=== PATIENT | female | born 1990 ===

== ENCOUNTER 2024-01-28 14:13 | Emergency (ER) | payer SELFPAY ==
--- NOTE | ~2024-01-28 | CT_ITS ---
EXAMINATION: CT ABDOMEN AND PELVIS WITH CONTRAST CLINICAL INFORMATION: Left lower quadrant pain. Bloody stools. COMPARISON: None available. TECHNIQUE: Multidetector volumetric images were obtained from the superior aspect of the liver through the pubic symphysis following administration 85 mL of Omnipaque 350 intravenous contrast. Sagittal and coronal reformatted images were obtained on the technologist's workstation. Oral contrast: No This CT examination was performed using dose optimization techniques as appropriate, variously including the following: *Automated exposure control *Adjustment of mA and/or kV according to patient size (this includes techniques or standardized protocols for targeted exams where dose is matched to indication/reason for exam; i.e. extremities or head) *Use of iterative reconstruction technique DLP: 728 mGy-cm FINDINGS: LUNG BASES: The visualized lung bases are unremarkable. LIVER, GALLBLADDER, AND BILIARY TREE: The liver is normal in size, shape, and attenuation. No focal hepatic lesion or biliary ductal dilatation is present. There is nondistended. No radiopaque stone or inflammatory change. PANCREAS: Unremarkable. SPLEEN: Unremarkable. ADRENAL GLANDS: Unremarkable. KIDNEYS AND URETERS: The kidneys are normal in size, shape, and attenuation. No hydronephrosis, hydroureter, or calculi seen. No perinephric stranding. BLADDER: Unremarkable. GASTROINTESTINAL TRACT: No small or large bowel obstruction. No bowel wall thickening or inflammatory change. Unremarkable appendix. PERITONEAL CAVITY: Trace pelvic free fluid. No intra-abdominal free air. No soft tissue mass or organized fluid collection. ABDOMINAL WALL: No significant hernia is appreciated. LYMPH NODES: No significant lymphadenopathy. VASCULAR: Unremarkable. PELVIC VISCERA: Bilateral ovarian follicles. No pelvic mass or organized fluid collection. OSSEOUS STRUCTURES: Chronic bilateral spondylolysis at L5-S1 with minimal grade 1 anterolisthesis. No acute fracture or subluxation. CT/CT abdomen pelvis w IV con IMPRESSION: 1. No small or large bowel obstruction. No bowel wall thickening or inflammatory change. Unremarkable appendix. 2. Trace pelvic free fluid. Bilateral ovarian follicles. No pelvic mass or organized fluid collection. 3. Chronic bilateral spondylolysis at L5-S1 with minimal grade 1 anterolisthesis. Fleischner guidelines were followed.
--- NOTE | 2024-01-28 14:43 | ED.ABDPAIN ---
HPI - Abdominal Pain General Chief Complaint: Recheck/Abnormal Lab/Rx Stated Complaint: Anal Bleed Time Seen by Provider: 01/28/24 20:50 Source: patient Mode of arrival: ambulatory Limitations: no limitations History of Present Illness ED Provider: GUILLE HPI narrative: 33 yo female with no PMH notes since January 13 when she was living in [place] she has had constant LLQ pain and intermittent bloody stools. No other travel, no abx use, no exposures. She has never this before, does not take thinners and does not have hx of colonoscopy. Mom is with her denies fam hx of UC or Crohns. Patient denies n/v or fevers. MD elicited complaint: abdominal pain Pertinent past history: none Onset (ago): week(s) (2) Pain Consistency: constant Location: LLQ Severity: moderate Quality: aching Radiation: none Migration to: no migration Exacerbating factors: eating Relieving factors: nothing Associated symptoms: hematochezia Related Data Previous Rx's ?Medication ?Instructions ?Recorded docusate sodium 100 mg capsule 100 mg PO BID PRN constipation #30 01/28/24 (Colace) caps Allergies Allergy/AdvReac Type Severity Reaction Status Date / Time Iodinated Contrast Media Allergy Hives Verified 01/28/24 22:19 Review of Systems Review of Systems Constitutional : No Weight loss, No Fever, No Chills ENT/Mouth : No sore throat, No Rhinorrhea Eyes: No Swelling, No Redness Cardiovascular : No Chest Pain, No SOB, No edema Respiratory : No Cough, No Sputum, No Wheezing Gastrointestinal : no Nausea, no Vomiting, no Diarrhea, positive abdominal Pain, pos Hematochezia, No Melena Genitourinary : No Dysuria, No Urinary Frequency, No Hematuria, No Urgency Musculoskeletal : No joint pain, No Myalgias, No Joint Swelling Skin : No Skin Lesions, No rash Neuro : No Weakness, No Numbness, No Dizziness, No Headache Psych : No Anxiety/Panic, No Depression All other systems reviewed and are negative. [facility] Past Medical History Attestation statement: The following information was validated with the patient. Source: old records reviewed Medical History No known health problems Social History Social History Smoked in Last 30 Days: No Use of substances other than those prescribed or required for medical reasons: No Advance Directives: No Advance Directives Information Provided: No Do you have a plan to hurt others: No Plan Physical Exam ED Vital Signs: Vital Signs - 24 hr 01/28/24 14:44 01/28/24 20:51 01/28/24 22:13 Temperature 98 F 98.9 F Pulse Rate 66 67 88 Respiratory Rate 18 16 18 Blood Pressure 112/56 L 115/67 Pulse Oximetry 99 99 100 Oxygen Delivery Method Room Air Room Air Room Air BMI result Body Mass Index 34.7 Appearance: Alert. Oriented X3. No acute distress. Eyes: Pupils equal, round and reactive to light. ENT: Pharynx normal. Neck: Normal inspection. Neck supple. CVS: Normal heart rate and rhythm. Pulses normal. Respiratory: No respiratory distress. Breath sounds normal. Abdomen: Soft and mild LLQ ttp no rebound or guarding Skin: Skin warm and dry. Normal skin color. Normal skin turgor. Extremities: No lower extremity edema. Neuro: Oriented X 3. No motor deficit. No sensory deficit. Course Course Course Narrative: This is an RME performed by Rafi Brayd, GRADING SUPERVISOR: Additional HPI, ROS, PE not included below will be deferred to primary provider. Patient is a 33-year-old female who presents emergency department for evaluation of left-sided abdominal pain, and bright red blood per rectum reportedly multiple times a day every time she has a bowel movement since 01/14/2024. Denies any history of similar pain including like this in the past. Denies blood from the rectum when she is not having a bowel movement. Plan: labs, occult stool Reevaluation(s) Reevaluation #1: itching and hives noted to arm after CT scan responding well to solumedrol and benadryl Medical Decision Making Medical Decision Making MDM Narrative: 33 yo female with no sig PMH no fam hx of IBD, no travel or abx use - at this time has LLQ pain and blood in stool will obtain basic labs, CT scan for colitis/diverticulitis Differential Diagnosis Differential Diagnoses: The differential diagnosis associated with the presentation includes colitis/diverticulitis Admission/Observation Consideration of admission/observation: Escalation of care including admission/observation considered labs stable H/H stable, guiac negative stools CT scan no acute findings stable for DC will refer to GI Lab Data MDM Lab Attestation statement: I reviewed the patient's lab results. 01/28/24 14:53 01/28/24 14:53 Labs: Lab Results 01/28/24 01/28/24 01/28/24 Range/Units 14:53 21:04 21:27 WBC 10.1 (4.8-10.8) X10*3/uL RBC 4.28 (4.20-5.50) X10*6/uL Hgb 13.1 (12.0-16.0) g/dl Hct 39.0 (37.0-47.0) % MCV 91.1 (80.0-98.0) fL MCH 30.6 (27.0-33.0) pg MCHC 33.6 (31.0-35.0) g/dl RDW 12.8 (11.0-16.0) % Plt Count 255 (160-400) X10*3/uL MPV 10.2 (9.4-12.3) fL Immature Gran % (Auto) 0.4 (0.0-0.4) % Neut % (Auto) 54.7 (45-73) % Lymph % (Auto) 36.4 (20-40) % [place] % (Auto) 6.8 (2-11) % Eos % (Auto) 1.2 (0-4) % Baso % (Auto) 0.5 (0-2) % Lymph # (Auto) 3.7 (1.2-4.9) X10*3/uL [place] # (Auto) 0.7 (0.1-1.2) X10*3/uL Eos # (Auto) 0.1 (0.0-0.4) X10*3/uL Baso # (Auto) 0.1 (0.0-0.2) X10*3/uL Abs Immat Gran (auto) 0.04 H (0.00-0.03) X10*3/uL Absolute Neuts (auto) 5.5 (2.0-8.3) x10*3/uL Absolute Nucleated RBC 0.000 (0.0-0.012) X10*3/uL Nucleated RBC % (auto) 0.0 (0.0-0.2) /100WBC Sodium 139 (135-145) mmol/L Potassium 4.1 (3.3-5.1) mmol/L Chloride 105 (96-108) mmol/L Carbon Dioxide 23 (22-29) mmol/L Anion Gap 15 (12-20) BUN 17 H (9-16) mg/dL Creatinine 0.88 (0.5-1.4) mg/dL Estim Creat Clear Calc 97.1 Estimated GFR > 60 Random Glucose 89 (60-115) mg/dL Calcium 9.4 (8.4-10.2) mg/dL Total Bilirubin 0.4 (0.0-1.0) mg/dL AST 15 (5-31) U/L ALT 17 (0-31) U/L Alkaline Phosphatase 60 (39-117) U/L C-Reactive Protein 0.13 (< or = 0.50) mg/dL Total Protein 7.4 (6.5-8.0) g/dL Albumin 4.2 (3.5-5.0) g/dL Urine Color Yellow Urine Appearance Clear Urine pH 6.5 (5.0-9.0) Ur Specific [place] 1.020 (1.005-1.025) Urine Protein Negative (Neg-Trace) mg/dL Urine Glucose (UA) Negative (Negative) mg/dL Urine Ketones Negative (Negative) mg/dL Urine Blood Negative (Negative) Urine Nitrite Negative (Negative) Ur Leukocyte Esterase Negative (Negative) Urine Test (NEGATIVE) Stool Occult Blood NEGATIVE (NEGATIVE) 01/28/24 Range/Units 21:28 WBC (4.8-10.8) X10*3/uL RBC (4.20-5.50) X10*6/uL Hgb (12.0-16.0) g/dl Hct (37.0-47.0) % MCV (80.0-98.0) fL MCH (27.0-33.0) pg MCHC (31.0-35.0) g/dl RDW (11.0-16.0) % Plt Count (160-400) X10*3/uL MPV (9.4-12.3) fL Immature Gran % (Auto) (0.0-0.4) % Neut % (Auto) (45-73) % Lymph % (Auto) (20-40) % [place] % (Auto) (2-11) % Eos % (Auto) (0-4) % Baso % (Auto) (0-2) % Lymph # (Auto) (1.2-4.9) X10*3/uL [place] # (Auto) (0.1-1.2) X10*3/uL Eos # (Auto) (0.0-0.4) X10*3/uL Baso # (Auto) (0.0-0.2) X10*3/uL Abs Immat Gran (auto) (0.00-0.03) X10*3/uL Absolute Neuts (auto) (2.0-8.3) x10*3/uL Absolute Nucleated RBC (0.0-0.012) X10*3/uL Nucleated RBC % (auto) (0.0-0.2) /100WBC Sodium (135-145) mmol/L Potassium (3.3-5.1) mmol/L Chloride (96-108) mmol/L Carbon Dioxide (22-29) mmol/L Anion Gap (12-20) BUN (9-16) mg/dL Creatinine (0.5-1.4) mg/dL Estim Creat Clear Calc Estimated GFR Random Glucose (60-115) mg/dL Calcium (8.4-10.2) mg/dL Total Bilirubin (0.0-1.0) mg/dL AST (5-31) U/L ALT (0-31) U/L Alkaline Phosphatase (39-117) U/L C-Reactive Protein (< or = 0.50) mg/dL Total Protein (6.5-8.0) g/dL Albumin (3.5-5.0) g/dL Urine Color Urine Appearance Urine pH (5.0-9.0) Ur Specific [place] (1.005-1.025) Urine Protein (Neg-Trace) mg/dL Urine Glucose (UA) (Negative) mg/dL Urine Ketones (Negative) mg/dL Urine Blood (Negative) Urine Nitrite (Negative) Ur Leukocyte Esterase (Negative) Urine Test NEGATIVE (NEGATIVE) Stool Occult Blood (NEGATIVE) Independent Interpretation I performed an independent interpretation of an: CT Scan (no cause of symptoms) Radiology Impression Discussion of test interpretation with radiology: I have reviewed the radiologist's reading. Independent Historian Clinical information obtained from an independent historian. History obtained from or confirmed by: Parent Prescription Management I considered prescription management with: Other Medications Administered Discontinued Medications Generic Name Dose Route Start Last Admin Trade Name Freq PRN Reason Stop Dose Admin Diphenhydramine HCl 50 mg 01/28/24 22:06 01/28/24 22:12 Diphenhydramine Hcl 50 Mg/Ml Vial IVPUSH 01/28/24 22:07 50 mg ONCE ONE Administration Iohexol 85 ml 01/28/24 22:00 01/28/24 22:00 Iohexol 350 Mg/Ml 100 Ml Infus..Btl IV 01/28/24 22:01 85 ml ONCE ONE Administration Methylprednisolone Sodium Succinate 60 mg 01/28/24 22:06 01/28/24 22:12 Methylprednisolone Sod Succ 125 Mg/2 Ml Vial IVPUSH 01/28/24 22:07 60 mg ONCE ONE Administration Discharge Plan Discharge Clinical Impression: Bright red rectal bleeding Abdominal pain Qualifiers: Abdominal location: left lower quadrant Qualified Code(s): R10.32 - Left lower quadrant pain Patient Disposition: Home, Self-Care Instructions: Rectal Bleeding (ED), Abdominal Pain (ED) Additional Instructions: no acute cause of symptoms will place on bowel regimen and please call the GI doctor listed below return for worsening symptoms or concerns CT/CT abdomen pelvis w IV con IMPRESSION: 1. No small or large bowel obstruction. No bowel wall thickening or inflammatory change. Unremarkable appendix. 2. Trace pelvic free fluid. Bilateral ovarian follicles. No pelvic mass or organized fluid collection. 3. Chronic bilateral spondylolysis at L5-S1 with minimal grade 1 anterolisthesis. Prescriptions: New docusate sodium [Colace] 100 mg capsule 100 mg PO BID PRN (Reason: constipation) Qty: 30 0RF Referrals: Jackie Huntley MD [Physician] - Print Language: Stateless
[2024-01-28 14:44] VITALS: BP 112/56; PULSE 66; RESP 18; TEMP 36.6; O2SAT 99; BMI 34.7
[2024-01-28 14:57] LABS: MANUAL DIFF FLAG NO
[2024-01-28 15:00] LABS: Basophils Absolute Auto 0.1 X10*3/uL (0.0-0.2); Basophils Percent Auto 0.5 % (0-2); Eosinophils Absolute Auto 0.1 X10*3/uL (0.0-0.4); Eosinophils Percent Auto 1.2 % (0-4); Hemoglobin 13.1 g/dl (12.0-16.0); Imm Gran Abs Auto 0.04 X10*3/uL (0.00-0.03); Imm Gran Pct Auto 0.4 % (0.0-0.4); Lymphocytes Absolute Auto 3.7 X10*3/uL (1.2-4.9); Lymphocytes Percent Auto 36.4 % (20-40); Mean Corpuscular HGB Conc 33.6 g/dl (31.0-35.0); Mean Corpuscular Hemoglobin 30.6 pg (27.0-33.0); Mean Corpuscular Volume 91.1 fL (80.0-98.0); Mean Platelet Volume 10.2 fL (9.4-12.3); Monocytes Absolute Auto 0.7 X10*3/uL (0.1-1.2); Monocytes Percent Auto 6.8 % (2-11); Neutrophils Absolute Auto 5.5 x10*3/uL (2.0-8.3); Neutrophils Percent Auto 54.7 % (45-73); Platelet Count 255 X10*3/uL (160-400); Red Blood Count 4.28 X10*6/uL (4.20-5.50); Red Cell Distribution Width 12.8 % (11.0-16.0); White Blood Count 10.1 X10*3/uL (4.8-10.8)
[2024-01-28 15:26] LABS: Sodium 139 mmol/L (135-145)
[2024-01-28 15:27] LABS: Carbon Dioxide 23 mmol/L (22-29); Chloride 105 mmol/L (96-108); Potassium 4.1 mmol/L (3.3-5.1)
[2024-01-28 15:28] LABS: Anion Gap 15 (12-20); Blood Urea Nitrogen 17 mg/dL (9-16); Creatinine Clr Calc Pharmacy 97.1; Estimated Glomerular Filt Rate > 60; Glucose Random 89 mg/dL (60-115)
[2024-01-28 15:29] LABS: Alanine Aminotransferase 17 U/L (0-31); Albumin Level 4.2 g/dL (3.5-5.0); Alkaline Phosphatase 60 U/L (39-117); Aspartate Amino Transferase 15 U/L (5-31); Bilirubin Total 0.4 mg/dL (0.0-1.0); Calcium 9.4 mg/dL (8.4-10.2); Total Protein 7.4 g/dL (6.5-8.0)
[2024-01-28 20:51] VITALS: BP 115/67; PULSE 67; RESP 16; TEMP 37.2; O2SAT 99
[2024-01-28 21:07] LABS: C Reactive Protein 0.13 mg/dL (< or = 0.50)
[2024-01-28 21:14] LABS: Appearance Urine Clear; Color Urine Yellow; Glucose Urine UA Negative (Negative); Leukocyte Esterase Urine Negative (Negative); Nitrite Urine Negative (Negative); PH 6.5 (5.0-9.0); Urine Blood Negative (Negative); Urine Ketones Negative (Negative); Urine Protein Negative (Neg-Trace)
[2024-01-28 21:38] LABS: OBS Int Ctl Valid YES; OBS1 NEGATIVE (NEGATIVE)
[2024-01-28 21:43] LABS: UPreg QC Valid YES; Urine Pregnancy NEGATIVE (NEGATIVE)
[2024-01-28] MEDS: iohexoL 350 MG/ML 100 ML INFUS..BTL 85 ML IV (22:00)
[2024-01-28] MEDS: methylPREDNISolone Sod Succ 125 MG/2 ML VIAL 60 MG IVPUSH (22:12)
[2024-01-28] MEDS: diphenhydrAMINE HCL 50 MG/ML VIAL IVPUSH (22:12)
--- NOTE | 2024-01-28 22:12 | PC.NURSE ---
Pt returned from CT reporting itching all over after being given IV contrast, MD notified, medicated per SEP. Hives noted to abd and bilateral arms. VSS, no oral involvement. SpO2 100% RA, will continue to monitor.
[2024-01-28 22:13] VITALS: PULSE 88; RESP 18; O2SAT 100
[2024-01-28 23:14] VITALS: BP 107/64; PULSE 80; RESP 18; TEMP 36.7; O2SAT 98
--- NOTE | 2024-01-28 23:14 | PC.NURSE ---
Rash improved, negative work up, cleared for dc home.
== END 2024-01-28 23:15 | disposition home or self-care (01) ==
PROVIDERS: Nurse Practitioner Family; Emergency Provider Emergency Medicine
DX: K62.5 Hemorrhage of anus and rectum (principal); R10.32 Left lower quadrant pain; L50.9 Urticaria, unspecified
CPT/HCPCS: 36415; 74177; 80053; 81003; 81025; 82272; 85025; 86140; 96374; 96375; 99284; J1200; J2919; Q9967

== ENCOUNTER 2024-04-27 11:24 | Outpatient (AMB) | payer MEDICAID, SELFPAY ==
[2024-04-27 11:24] VITALS: BP 112/62; PULSE 62; O2SAT 99; BMI 37.0
--- NOTE | 2024-04-27 11:24 | A.OFFPC_ITS ---
Vital Signs 04/27/24 11:24 Height 5 ft 3 in Weight 209 lb BMI 37.0 BP 112/62 Blood Pressure Location Lt brachial Position Sitting Pulse 62 Pulse Source Pulse Oximeter Pulse Oximetry (%) 99 Oxygen Delivery Method Room Air Intake Visit Reasons: New patient Territory Sales Manager Required: Yes Territory Sales Manager Language: Barbadian Allergies Iodinated Contrast Media Allergy (Verified 04/27/24 11:54) Hives Medication List - Last Reconciled 04/27/24 by Jody Andrade PA-C docusate sodium (Colace) 100 mg PO BID PRN Tobacco use date assessed: 04/27/24 Dental Screening Dental Screen Date: 04/27/24 Did you have a dental visit in the last 12 months?: No Did you have a dental problem in the last 6 months where you did not have access to dental care?: No Was dental information given to patient?: Patient has dentist HPI New patient HPI Details 33-year-old female coming to the office for the 1st time. Territory Sales Manager was used for the duration of this visit. She mentioned she is still having occasional rectal bleeding last episode was over 2 weeks ago and mentioned she was not straining when she had the bleeding. She was advised to follow up with Gastroenterology after being seen in the ER but has not done so. She is having a bowel movement every other day that is soft and well formed. Patient states she was previously seen by Gynecology but is not up-to-date with her Pap smears and does have a history of abnormal Pap smears in the past. She also mentioned struggling with anxiety and depression. She has a rash on the chin area that is itchy and has been present for several months. [facility] Medical History No known health problems Surgical History Previous section Social History Housing: Apartment Patient Tobacco Use Status: Never used Tobacco service: No Current occupational status: unemployed Cognitive needs: No Hearing needs: No Vision needs: No Female Reproductive History Menstrual control method: none Total pregnancies: 2 Full term: 2 History of abnormal pap smear: Yes Questionnaire PHQ-9 Over the last 2 weeks, how often have you been bothered by any of the following problems? 1. Little interest or pleasure in doing things: several days 2. Feeling down, depressed, or hopeless: several days 3. Trouble falling or staying asleep, or sleeping too much: nearly every day 4. Feeling tired or having little energy: several days 5. Poor appetite or overeating: nearly every day 6. Feeling bad about yourself - or that you are a failure or have let yourself or your family down: not at all 7. Trouble concentrating on things, such as reading the newspaper or watching television: not at all 8. Moving or speaking so slowly that other people could have noticed. Or the opposite - being so fidgety or restless that you have been moving around a lot more than usual: not at all 9. Thoughts that you would be better off or of hurting yourself in some way: not at all Total score: 9 Depression Screening Interpretation: Positive Depression Screening Follow-up: New Medication prescribed Depression Screening Done: Yes 87503 - PHQ-9 Billing: Yes Source: Developed by Drs. Kaushik Castle, Ghada Koch, Jose Garber and colleagues, with an educational raffy from [employer]. Thrive Questionnaire Date Thrive assessed: 04/27/24 I am a: Patient What is your living situation today?: I choose not to answer this question Within the past 12 months, did the food you bought not last and you didn't have the money to get more?: I choose not to answer this question Within the past 12 months, did you worry whether your food would run out before you got money to buy more?: I choose not to answer this question Do you have trouble paying for medicines?: I choose not to answer this question Do you have trouble getting transportation to medical appointments?: I choose not to answer this question Do you have trouble paying your heating and electricity bill?: No Do you have trouble taking care of your child, family member or friend?: No Do you have trouble with day-to-day activities such as bathing, preparing meals, shopping, managing finances, etc.?: No Are you currently unemployed and looking for a job?: Yes Are you interested in more education?: Yes Please select the resources that you would like help with: None Currently or been in a relationship where the following occur: No concerns reported THRIVE Score: 0 AUDIT C Alcohol Use Questionnaire (AUDIT-C) 1. How often do you have a drink containing alcohol?: Monthly or less 2. How many drinks containing alcohol do you have on a typical day when you are drinking?: 1 or 2 3. How often do you have six or more drinks on one occasion?: Monthly Total Score: 3 AWAIS-7 AMB Questionnaire AWAIS-7 Date AWAIS - 7 assessed: 04/27/24 Feeling nervous, anxious, or on edge: 1 = Several days Not being able to stop or control worryin = Several days Worrying too much about different things: 1 = Several days Trouble relaxin = Several days Being so restless that it is hard to sit still: 0 = Not at all Becoming easily annoyed or irritable: 3 = Nearly every day Feeling afraid as if something awful might happen: 3 = Nearly every day Total AWAIS-7 score (0-4 normal; 5-9 mild; 10-14 moderate; 15-21 severe): 10 Source: Developed by Drs. Kaushik Castle, Ghada Koch, Jose Garber and colleagues, with an educational raffy from [employer]. AWAIS-7 Assessment Billing AWAIS-7 Assessment Tool: AWAIS-7 Assessment 29827 Review of Systems Const Denies fatigue, Denies fever(s) and Denies headache(s) Eyes Reports no additional complaints and Denies change in vision ENT Denies dizziness and Denies headache(s) Card Denies chest pain, Denies lightheadedness and Denies dyspnea Resp Denies cough and Denies dyspnea GI Denies abdominal pain, Reports hematochezia, Reports constipation, Denies dyspepsia, Denies diarrhea, Denies nausea and Denies vomiting Denies urinary frequency, Denies dysuria, Denies urinary hesitancy and Denies urinary urgency Musc Denies back pain and Denies myalgias Skin/Breast Reports system reviewed and no additional complaints, except as documented Neuro Denies dizziness and Denies headache(s) Psych Reports no additional complaints Endo Denies fatigue Physical exam (Primary Care) Vital Signs: Last Vital Signs Pulse 62 04/27/24 11:24 BP 112/62 04/27/24 11:24 Pulse Ox 99 04/27/24 11:24 Oxygen Delivery Method Room Air 04/27/24 11:24 BMI result Body Mass Index 37.0 Tobacco/Smoking Status: Tobacco use Status Tobacco use date assessed 04/27/24 04/27/24 11:25 Patient Tobacco Use Status Never used Tobacco 04/27/24 11:25 PHQ-9: PHQ-9 Score PHQ-9: Total score 9 04/27/24 12:35 Depression Screening Interpretation: Positive Depression Screening Follow-up: New Medication prescribed Thrive Assessment: Date of Thrive Assessment Date Thrive assessed 04/27/24 04/27/24 11:25 Currently or been in a relationship where the following occur: No concerns reported Const General: cooperative, healthy appearing, comfortable and no acute distress Orientation/consciousness: patient oriented x3 HENMT Head: Yes normocephalic Ears: hearing grossly normal bilaterally General nose exam: Normal external nose present Eyes General: appearance normal, both eyes and all related structures Conjunctivae: conjunctivae normal Neck Neck: Yes full ROM and Yes no lymphadenopathy Resp Effort & Inspection: normal respiratory effort Auscultation: clear to auscultation bilaterally, no crackles, no rales, no rhonchi and no wheezes Cardio Rate: regular rate Rhythm: regular rhythm Skin Other: Flaky macular papular rash on chin, submandibular and neck area Neuro General: patient oriented x3 Gait exam (Neuro): Normal gait present Extrem General: Yes normal to inspection, Yes full ROM and No edema Psych Affect: normal affect Attitude: cooperative Insight: Good insight present (Psych) Judgement: Good judgement present (Psych) Office Procedures Flu Questionnaire Does the patient have a severe egg allergy?: No Does the patient have severe life threatening allergies?: No Does the patient have a fever or illness today?: No Immunizations Fluarix Triv [id number] (PF) 45 mcg (15 mcg x 3)/0.5 mL IM syringe Performing Provider: Jody Andrade PA-C [facility] Administered by: KIM Pillai on 04/27/24 12:34 Dose Route Admin Location Dispensed Lot Number Expiration Date [facility] Gas Line Installer Supervisor 0.5 mL IM Right Deltoid 0.5 mL [id number] 01/08/25 [id number] [facility] VIS Given Date VIS Provided VIS Publication Date 04/27/24 Single Vaccine 21 Eligibility Eligibility Date Funding Source Not [facility] Eligible 04/27/24 Private Coding Level of Care Code New Pt Level 4 (83274) Diagnoses Rectal bleeding K62.5 Facial rash R21 Anxiety F41.9 Depression F32.A Additional Codes AWAIS-7 Assessment Billing - AWAIS-7 Assessment Tool: AWAIS-7 Assessment 65023 ([id number]) Assessment & Plan Assessment & Plan (1) Rectal bleeding: Code(s): K62.5 - Hemorrhage of anus and rectum Category: Medical Plan: Patient has rectal bleeding intermittently without straining. Per ER recommended following up with GI provider. Referral was placed today. Continue on current bowel regimen. (2) Facial rash: Code(s): R21 - Rash and other nonspecific skin eruption Category: Medical Plan: Patient has itchy maculopapular rash on chin and neck area. Referral was placed to Dermatology and advised to use [id number] hydrocortisone cream however do not use his cream for more than 2 weeks. (3) Anxiety: Code(s): F41.9 - Anxiety disorder, unspecified Category: Medical Plan: Patient's awais 7 was positive today and she does struggle with anxiety. We will trial Wellbutrin for treatment of anxiety and depression and follow up in 2 months. (4) Depression: Code(s): F32.A - Depression, unspecified Category: Medical Plan: Patient's PHQ-9 screening was positive today patient does state she has struggles with depression declines a counselor at this time. We will trial Wellbutrin twice daily and follow up in 2 months for evaluation of symptoms. Reviewed possible side effects of this medication patient agrees to follow up if she has any concerns. Plan Updated blood work was ordered and referral was placed to gynecology for routine Pap smears. This note was constructed using voice recognition software. While every effort has been made to ensure accuracy and transplant case manager, still areas may have been included sometimes these areas may affect the content or meeting of the given symptoms. Total time spent caring for the patient today was 30 minutes. This includes time spent before the visit reviewing the chart, time spent during the visit, and time spent after the visit and documentation. Orders: Orders Influenza [id number] Immunization Today Z23 - Encounter for immunization Free T4 (Free Thyroxine) Today Z00.00 - Encounter for general adult medical examination without abnormal findings Lipid Panel Today Z00.00 - Encounter for general adult medical examination without abnormal findings Vitamin B12 and Folate Today Z00.00 - Encounter for general adult medical examination without abnormal findings Comprehensive Met. Panel Today Z00.00 - Encounter for general adult medical examination without abnormal findings TSH reflex Free T4 Today Z00.00 - Encounter for general adult medical examination without abnormal findings Vitamin D 25-OH (D2 and D3) Today Z00.00 - Encounter for general adult medical examination without abnormal findings UA CC w/rflx Micro + Cult Today R35.89 - Other polyuria Referrals Gastroenterology Referral K62.5 - Hemorrhage of anus and rectum Dermatology Referral L67.8 - Other hair color and hair shaft abnormalities, R21 - Rash and other nonspecific skin eruption ANIMAL ASSISTANT Referral Z00.00 - Encounter for general adult medical examination without abnormal findings Medications: New bupropion HCl SR (Wellbutrin SR) 100 mg PO BID 60 tabs 2RF
== END 2024-04-27 12:31 | disposition home or self-care (01) ==
DX: K62.5 Hemorrhage of anus and rectum (principal); R21 Rash and other nonspecific skin eruption; F41.9 Anxiety disorder, unspecified; F32.A Depression, unspecified; Z23 Encounter for immunization

== ENCOUNTER → 2024-04-27 11:24 | Outpatient (BNVA) | payer MEDICAID, SELFPAY | DX: K62.5 Hemorrhage of anus and rectum (principal); R21 Rash and other nonspecific skin eruption; F41.9 Anxiety disorder, unspecified; F32.A Depression, unspecified; Z23 Encounter for immunization | CPT/HCPCS: 90471; 90656; 96127; 99202 ==

== ENCOUNTER 2024-05-01 09:21 | Outpatient (REF) | payer MEDICAID, SELFPAY ==
[2024-05-01 10:16] LABS: Appearance Urine Clear; Color Urine Yellow; Glucose Urine UA Negative (Negative); Leukocyte Esterase Urine Negative (Negative); Nitrite Urine Negative (Negative); PH 5.5 (5.0-9.0); Specific Gravity - Urine >= 1.030 (1.005-1.025); UMIC TRIGGER UACC YES; Urine Blood Small (1+) (Negative); Urine Ketones Negative (Negative); Urine Protein Negative (Neg-Trace)
[2024-05-01 10:33] LABS: Bacteria Urine Trace (None Seen); Hyaline Casts Urine 0-2 /LPF (0-2); WBC Urine 0-5 /HPF (0-5)
[2024-05-01 10:59] LABS: Albumin Level 4.3 g/dL (3.5-5.0); Alkaline Phosphatase 61 U/L (39-117); Anion Gap 11 (12-20); Bilirubin Total 0.3 mg/dL (0.0-1.0); Blood Urea Nitrogen 12 mg/dL (9-16); Calcium 9.7 mg/dL (8.4-10.2); Carbon Dioxide 28 mmol/L (22-29); Chloride 107 mmol/L (96-108); Cholesterol 122 mg/dL (<200); Estimated Glomerular Filt Rate > 60; Glucose Random 90 mg/dL (60-115); HDL Cholesterol 52 mg/dL (>40); LDL Cholesterol Calculated 62 mg/dL (<100); Potassium 4.3 mmol/L (3.3-5.1); Sodium 142 mmol/L (135-145); Total Protein 7.5 g/dL (6.5-8.0); Triglycerides 40 mg/dL (<150)
[2024-05-01 11:22] LABS: Free T4 (Free Thyroxine) 0.98 ng/dL (0.71-1.85); TSH reflex Free T4 0.73 uIU/mL (0.32-4.0)
[2024-05-01 11:27] LABS: Folate 11.7 ng/mL (> or = 4.0); Vitamin B12 746 pg/mL (200-900)
[2024-05-01 12:45] LABS: Alanine Aminotransferase 21 U/L (0-31); Aspartate Amino Transferase 22 U/L (5-31)
[2024-05-08 14:54] LABS: Vitamin D 25-OH, D2 <4 ng/mL; Vitamin D 25-OH, D3 19 ng/mL; Vitamin D 25-OH, Total 19 ng/mL (30-100)
== END 2024-05-01 09:22 | disposition home or self-care (01) ==
LOC: HO.LAB 09:21
DX: Z00.00 Encounter for general adult medical examination without abnormal findings (principal); R35.89 Other polyuria
CPT/HCPCS: 36415; 80053; 80061; 81001; 82306; 82607; 82746; 84439; 84443

== ENCOUNTER 2025-05-15 14:13 | Outpatient (AMB) | payer OTHER, SELFPAY ==
--- NOTE | 2025-05-15 14:20 | A.OFFPC_ITS ---
Vital Signs 05/15/25 14:22 Height 5 ft 3 in Weight 189 lb 2 oz BMI 33.5 BP 100/60 Blood Pressure Location Lt brachial Position Sitting Pulse 78 Pulse Source Pulse Oximeter Temp 97.1 F Temp Source Temporal Artery Scan Pulse Oximetry (%) 98 Oxygen Delivery Method Room Air Intake Visit Reasons: Papillomavirus Intake Note: Patient is here to follow up on Papillomavirus. Complaint left side of abdomen Postal Service Mail Processor Required: Yes Postal Service Mail Processor Language: Mirror Silverer Name: Hiram [id number] Information Interpreted: non-clinical & clinical Belt Measurer: Not Required per policy Accompanied by: Self / Same As Patient Allergies Iodinated Contrast Media Allergy (Verified 05/15/25 14:23) Hives Medication List - Last Reconciled 05/15/25 by Jody Andrade PA-C bupropion HCl SR (Wellbutrin SR) 100 mg PO BID cholecalciferol (vitamin D3) 25 mcg PO DAILY docusate sodium (Colace) 100 mg PO BID PRN Tobacco use date assessed: 05/15/25 Dental Screening Dental Screen Date: 05/15/25 Did you have a dental visit in the last 12 months?: Yes Did you have a dental problem in the last 6 months where you did not have access to dental care?: No Was dental information given to patient?: Patient has dentist HPI Papillomavirus HPI Details 34-year-old female with past medical his tory of anxiety depression last seen 06/2024 coming in for acute problem. clinical liaison Matt [id number] was used for the duration of this visit. Presenting for evaluation of back pain and gastrointestinal issues after recently returning from [place]. The patient complains of long-standing, severe low back pain on the left side that radiates down the leg to the foot. While in [place], she underwent back imaging which reportedly showed a couple of herniated discs and bone issues described as crystallized. While in [place] she was diagnosed with irritable bowel syndrome and treated with medication but is unsure of the name. She reports primarily constipation and abdominal pain and occasionally has blood in the stool while straining. She continues with abdominal pain since discontinuation of the medication provided in [place]. She also at some point underwent an abdominal ultrasound in uterine biopsy and is unsure of the reason why and does not have the results with her. She does have the paperwork at home and agrees to bring this to her next visit. [facility] Medical History No known health problems Surgical History Previous section Family History Maternal Aunt Thyroid cancer Social History Housing: Apartment Patient Tobacco Use Status: Never used Tobacco e-Cigarette/Vaping Use: Never Used Second Hand Smoke Exposure: No service: No Current occupational status: unemployed Cognitive needs: No Hearing needs: No Vision needs: No Questionnaire PHQ-9 Over the last 2 weeks, how often have you been bothered by any of the following problems? 1. Little interest or pleasure in doing things: several days 2. Feeling down, depressed, or hopeless: several days 3. Trouble falling or staying asleep, or sleeping too much: nearly every day 4. Feeling tired or having little energy: several days 5. Poor appetite or overeating: several days 6. Feeling bad about yourself - or that you are a failure or have let yourself or your family down: several days 7. Trouble concentrating on things, such as reading the newspaper or watching television: not at all 8. Moving or speaking so slowly that other people could have noticed. Or the opposite - being so fidgety or restless that you have been moving around a lot more than usual: not at all 9. Thoughts that you would be better off or of hurting yourself in some way: not at all Total score: 8 Depression Screening Interpretation: Positive Depression Screening Follow-up: Existing condition and Declines treatment Depression Screening Done: Yes Source: Developed by Drs. Kaushik Castle, Ghada Koch, Jose Garber and colleagues, with an educational raffy from [employer]. Thrive Questionnaire Date Thrive assessed: 05/15/25 I am a: Patient What is your living situation today?: I have a steady place to live Within the past 12 months, did the food you bought not last and you didn't have the money to get more?: Sometimes True Within the past 12 months, did you worry whether your food would run out before you got money to buy more?: Sometimes True Do you have trouble paying for medicines?: Yes Do you have trouble getting transportation to medical appointments?: Yes Do you have trouble paying your heating and electricity bill?: Yes Do you have trouble taking care of your child, family member or friend?: I choose not to answer this question Do you have trouble with day-to-day activities such as bathing, preparing meals, shopping, managing finances, etc.?: No Are you currently unemployed and looking for a job?: Yes Are you interested in more education?: Yes Please select the resources that you would like help with: Food Currently or been in a relationship where the following occur: I choose not to answer THRIVE Score: 4 AUDIT C Alcohol Use Questionnaire (AUDIT-C) 1. How often do you have a drink containing alcohol?: 2-4 times a month 2. How many drinks containing alcohol do you have on a typical day when you are drinking?: 10 or more 3. How often do you have six or more drinks on one occasion?: Monthly Total Score: 8 AWAIS-7 AMB Questionnaire AWAIS-7 Date AWAIS - 7 assessed: 05/15/25 Feeling nervous, anxious, or on edge: 1 = Several days Not being able to stop or control worryin = Several days Worrying too much about different things: 1 = Several days Trouble relaxin = Several days Being so restless that it is hard to sit still: 1 = Several days Becoming easily annoyed or irritable: 0 = Not at all Feeling afraid as if something awful might happen: 1 = Several days Total AWAIS-7 score (0-4 normal; 5-9 mild; 10-14 moderate; 15-21 severe): 6 Source: Developed by Drs. Kaushik Castle, Ghada Koch, Jose Garber and colleagues, with an educational raffy from [employer]. AWAIS-7 Assessment Billing AWAIS-7 Assessment Tool: AWAIS-7 Assessment 72800 Review of Systems Const Denies body aches, Denies chills, Denies fever(s) and Denies poor appetite Eyes Reports no additional complaints ENT Denies dysphagia and Denies odynophagia Card Denies chest pain, Denies edema, Denies lightheadedness and Denies dyspnea Resp Denies dyspnea GI Reports abdominal pain, Reports constipation, Denies dysphagia, Denies diarrhea, Denies nausea, Denies odynophagia and Denies vomiting Musc Reports as per HPI, Denies abnormal gait and Reports back pain Skin/Breast Reports system reviewed and no additional complaints, except as documented Neuro Denies abnormal gait Psych Reports no additional complaints Physical exam (Primary Care) Vital Signs: Last Vital Signs Temp 97.1 F 05/15/25 14:22 Pulse 78 05/15/25 14:22 BP 100/60 05/15/25 14:22 Pulse Ox 98 05/15/25 14:22 Oxygen Delivery Method Room Air 05/15/25 14:22 BMI result Body Mass Index 33.5 Tobacco/Smoking Status: Tobacco use Status Tobacco use date assessed 05/15/25 05/15/25 14:23 Patient Tobacco Use Status Never used Tobacco 05/15/25 14:21 e-Cigarette/Vaping Use Never Used 05/15/25 14:23 PHQ-9: PHQ-9 Score PHQ-9: Total score 8 05/15/25 15:09 Depression Screening Interpretation: Positive Depression Screening Follow-up: Existing condition and Declines treatment Thrive Assessment: Date of Thrive Assessment Date Thrive assessed 05/15/25 05/15/25 14:21 Currently or been in a relationship where the following occur: I choose not to answer Const General: cooperative, healthy appearing, comfortable and no acute distress Orientation/consciousness: patient oriented x3 HENMT Head: Yes normocephalic Ears: hearing grossly normal bilaterally General nose exam: Normal external nose present Eyes General: appearance normal, both eyes and all related structures Conjunctivae: conjunctivae normal Neck Neck: Yes full ROM and Yes no lymphadenopathy Resp Effort & Inspection: normal respiratory effort Auscultation: clear to auscultation bilaterally, no crackles, no rales, no rhonchi and no wheezes Cardio Rate: regular rate Rhythm: regular rhythm GI Palpation (GI): Soft to palpation, not firm, nontender, no guarding, not rigid and No Rebound tenderness present Skin General skin exam: no rashes or lesions noted Neuro General: patient oriented x3 Gait exam (Neuro): Normal gait present Extrem General: Yes normal to inspection, Yes full ROM and No edema Psych Affect: normal affect Attitude: cooperative Insight: Good insight present (Psych) Judgement: Good judgement present (Psych) Coding Level of Care Code Est Pt Level 3 (48141) Diagnoses IBS (irritable bowel syndrome) K58.9 Depression F32.A Low back pain M54.50 Rectal bleeding K62.5 Obesity (BMI 30.0-34.9) E66.9 Pelvic pain R10.2 Additional Codes AWAIS-7 Assessment Billing - AWAIS-7 Assessment Tool: AWAIS-7 Assessment 62173 ([id number]) Assessment & Plan Assessment & Plan (1) IBS (irritable bowel syndrome): Code(s): K58.9 - Irritable bowel syndrome, unspecified Category: Medical Plan: For IBS diagnosis recommend low FODMAP diet patient was given handout today. She can also start on fiber supplement daily. Plan to obtain the notes while in [place]. (2) Depression: Code(s): F32.A - Depression, unspecified Category: Medical Plan: For depression and anxiety she feels good without medication or counseling at this time. (3) Low back pain: Code(s): M54.50 - Low back pain, unspecified Category: Medical Plan: For low back pain she states she was diagnosed with a lumbar disc herniation while in [place] but does not have the results of the imaging and she agrees to bring this to the office for review. She is requesting a referral to a back specialist and referral was placed to [facility] today. She may use cyclobenzaprine as needed for pain at bedtime and Tylenol and ibuprofen throughout the day. (4) Rectal bleeding: Code(s): K62.5 - Hemorrhage of anus and rectum Category: Medical Plan: Rectal bleeding consistent with straining likely a hemorrhoid. Recommend avoidance of constipation and increase in fiber intake. Consider referral to gastro. (5) Obesity (BMI 30.0-34.9): Code(s): E66.9 - Obesity, unspecified Category: Medical Plan: Healthy diet and regular exercise is encouraged. Patient is requesting GLP 1 injections however she has a family history of thyroid cancer. She is unsure of the type of thyroid cancer and she will look into her family history and get back to the office. (6) Pelvic pain: Code(s): R10.2 - Pelvic and perineal pain Category: Medical Plan: The patient reports pelvic pain and mentions a uterine sample was taken while she was in [place]. A referral to a ballistics tester will be made. The patient was instructed to bring in her medical records from [place] for review. Plan This note was constructed using voice recognition software. While every effort has been made to ensure accuracy and public transportation inspector, still areas may have been included sometimes these areas may affect the content or meeting of the given symptoms. Total time spent caring for the patient today was 20 minutes. This includes time spent before the visit reviewing the chart, time spent during the visit, and time spent after the visit and documentation. Patient was informed and verbally consented to the use of an ambient scribe for clinic note documentation during this visit. Orders: Orders Comprehensive Met. Panel 05/15/25 Z00.00 - Encounter for general adult medical examination without abnormal findings TSH reflex Free T4 05/15/25 Z13.29 - Encounter for screening for other suspected endocrine disorder Vitamin B12 and Folate 05/15/25 Z13.21 - Encounter for screening for nutritional disorder Vitamin D 25-OH Total 05/15/25 Z13.21 - Encounter for screening for nutritional disorder Complete Blood Count Auto Diff 05/15/25 Z13.0 - Encounter for screening for diseases of the blood and blood-forming organs and certain disorders involving the immune mechanism Lipid Panel 05/15/25 Z13.220 - Encounter for screening for lipoid disorders Referrals Orthopedics Referral M54.50 - Low back pain, unspecified WASTE WATER OR WATER PLANT OPERATOR Referral Z12.4 - Encounter for screening for malignant neoplasm of cervix Medications: New psyllium husk (Metamucil) mix into at least 8 oz of water or juice before administering 1 tbsp PO DAILY 660 grams 0RF cyclobenzaprine 5 mg PO BEDTIME 30 tabs 0RF Discontinued docusate sodium (Colace) Discontinued Reason: Patient no longer taking 100 mg PO BID PRN 30 caps 0RF constipation bupropion HCl SR (Wellbutrin SR) Discontinued Reason: Patient no longer taking 100 mg PO BID 60 tabs 2RF
[2025-05-15 14:22] VITALS: BP 100/60; PULSE 78; TEMP 36.2; O2SAT 98; BMI 33.5
--- OUTSIDE RECORDS SUMMARY | 2025-05-15 17:14 | XMS_ITS | Patient Health Record ---
Author Organization [facility] Address [facility] [place] [address] Care Team Providers Care Jde Developer Name Role Phone OBDULIO LENZ Primary Care Provider [facility] RAYNE ALICIA X Unavailable RODRIGEZ SIMMONSSARA RICKETTSO Unavailable [place], [facility] Unavailable [phone] SAMIR ESCUDERO Unavailable [phone] RODRIGEZSAURAV QUIROGA Unavailable Allergies No Known Allergies Results Component Value Reference Range Flag Notes LUMBAR SPINE 2 OR 3 VIEWS Reviewed date:10/31/2024 05:53:45 PM Interpretation:Abnormal Performing Lab: Notes/Report: See Below For Report LUMBAR SPINE X-RAY [id number].Report Text See Below For Report URINE [id number]-DRC-FEIX Reviewed date:10/31/2024 05:53:52 PM Interpretation:Abnormal Performing Lab: Notes/Report: LICENSE.: 1449 CLIA: [id number] DIRECTOR: LCDA. LO GILMAN TEST PERFORMED BY: LILA Num: [id number] Exp: 01/08/2025 KWAME MCLAIN [address] CONFIRMATORY TEST Paid 5 Cents SULLIVAN CLEM RYAN, NUM. 18 OTHER: Pat. No.: [id number] [facility] [place] BY CLINITEK STATUS Col. Ap. Med. P.R. ORDER [id number] PERFORMED AT: Comment: NHT= NON HEMOLIZED RBC TRACE present in urinalisis sample. COLOR Yellow Yellow APPEARANCE Slightly Cloudy Clear A GLUCOSE Negative Negative BILIRUBIN Negative Negative KETONE Negative Negative SPECIFIC GRAVITY 1.020 1.001 - 1.030 A BLOOD Trace Negative A PH 6.5 4.5 - 8.0 A PROTEIN Negative Negative UROBILINOGEN 0.2 Normal A NITRITE Negative Negative LEUKOCYTES Small Negative A MICROSCOPIC ANALYSIS WBC 8-15 0 - 5 A RBC 2-4 0 - 3 A CASTS None Seen None Seen EPITHELIAL CELLS URINE Moderate Occ - Few A MUCOUS THREADS Light None Seen A BACTERIA Moderate Occ - Few A CRYSTALS Occasional None Seen A TYPE Squamous TYPE Amorphous Urate CMP Reviewed date:10/26/2024 12:03:12 PM Interpretation:Normal Performing Lab: Notes/Report: LICENSE.: 1449 CLIA: [id number] DIRECTOR: LCDA. LO GILMAN Num: [id number] Exp: 01/08/2025 [place] [address] Paid 5 Cents SULLIVAN CLEM RYAN, NUM. 18 TEST PERFORMED BY: LILA Pat. No.: [id number] [facility] [place] Col. Ap. Med. P.R. ORDER [id number] PERFORMED AT: BY: Vitros XT 3400 GLUCOSE 89.00 74-106 MG/DL NA 140.00 137-145 MMOL/L K 4.50 3.5-5.1 MMOL/L CL 104.00 98-107 MMOL/L CO2 27.00 22-30 MMOL/L AGAP 13.50 10-20 MMOL/L BUN 11.00 7-17 MG/DL CREAT 0.69 0.52-1.04 MG/DL BUN/CREATININE RATIO 15.94 7-16 AST (SGOT) 20.00 14-36 U/L ALT(SGPT) 23.00 0-35 U/L ALKP 59.00 38-126 U/L CALCIUM 9.50 8.4-10.2 MG/DL ALBUMIN 4.20 3.5-5 G/DL PROTEIN TOTAL 7.20 6.3-8.2 G/DL A/G 1.40 1.2-2.2 GLOBULIN 3.00 2.4-3.5 BILIRUBIN TOTAL 0.62 0.3-1.2 MG/DL GFR AFRO AMERICANS ML >90.00 0-0 /MIN/1 73 GFR NON AF0-AMERICANS ML >90.00 0-0 /MIN/1 73 AMYLASE Reviewed date:10/31/2024 05:53:58 PM Interpretation:High Performing Lab: Notes/Report: LICENSE.: 549 CLIA: [id number] DIRECTOR: [facility]. MONSERRAT CASTAÑEDA Num: [id number] Exp: 11/08/2024 [place] [address] Paid 5 Cents [address] Pat. No.: [id number] [facility] Col. Ap. Med. P.R. ORDER [id number] PERFORMED AT: AMYLASE 119.00 30.00-118.00 U/L H BY: REMBERTO CLEMENS CH Sample ID: [id number] Collected: 10/26/2024 10:12AM *Lab Received: 10/26/2024 2:03PM TEST VALIDATED BY: [id number] ISAEL 10/26/2024 2:22PM CBC + DIFF Reviewed date:10/26/2024 12:03:25 PM Interpretation:Normal Performing Lab: Notes/Report: CBC & DIFF Col. Ap. Med. P.R. ORDER [id number] PERFORMED AT: Pat. No.: [id number] [facility] [place] Paid 5 Cents SULLIVANJami RYAN, NUM. 18 Exp: 01/08/[address] [facility] [place] [address] Num: [id number] DIRECTOR: MALOU. LO GILMAN LICENSE.: 1449 CLIA: [id number] WHITE BLOOD COUNT 7.3 4.8-10.8 X10 RED BLOOD COUNT 4.28 4.2-5.4 X10 HEMOGLOBIN 13.2 12-16 g/dL HEMATOCRIT 39.3 37-47 % MCV 91.8 76-96 fL MCH 30.8 27-32 pg MCHC 33.6 31-35 g/dl RDW 12.9 11-16 % PLATELET COUNT 221 130-400 x10 MPV 9.2 6.1-10 fL AUTOMATIC DIFFERENTIAL NE % 58.8 45-70 % LY % 34.6 20-40 % MO % 5.0 3-10 % EO % 1.3 1-5 % BA % 0.3 0-1 % NE # 4.3 2-7.5 x10 LY # 2.5 1.5-4 x10 MO # 0.4 0.2-0.8 x10 EO # 0.1 0-0.4 x10 BA # 0.0 0-0.1 x10 MANUAL DIFFERENTIAL TEST PERFORMED BY: LILA BY: JAZMINE 560 RBC MORPHOLOGY US RENAL Reviewed date:12/26/2024 03:58:42 PM Interpretation:Normal Performing Lab: Notes/Report: See Below For Report Renal ultrasound: [id number].Report Text See Below For Report US ABDOMINAL MULTIPLE ORGAN Reviewed date:02/13/2025 03:12:34 PM Interpretation:Normal Performing Lab: Notes/Report: See Below For Report Abdominal ultrasound: [id number].Report Text See Below For Report CMP Reviewed date:02/13/2025 03:09:48 PM Interpretation:Normal Performing Lab: Notes/Report: BY: Aristides XT 3400 Col. Ap. Med. P.R. ORDER [id number] PERFORMED AT: Pat. No.: [id number] [facility] [place] Paid 5 Cents SULLIVANJami RYAN, NUM. 18 Exp: 03/05/2025 [place] [address] Num: [id number] DIRECTOR: LCDA. LO GILMAN LICENSE.: 1449 CLIA: [id number] GLUCOSE 88.00 74-106 MG/DL NA 139.00 137-145 MMOL/L K 4.20 3.5-5.1 MMOL/L CL 102.00 98-107 MMOL/L CO2 25.00 22-30 MMOL/L AGAP 16.20 10-20 MMOL/L BUN 18.00 7-17 MG/DL H CREAT 0.70 0.52-1.04 MG/DL BUN/CREATININE RATIO 25.71 7-16 H AST (SGOT) 23.00 14-36 U/L ALT(SGPT) 28.00 0-35 U/L ALKP 56.00 38-126 U/L CALCIUM 9.50 8.4-10.2 MG/DL ALBUMIN 4.50 3.5-5 G/DL PROTEIN TOTAL 7.70 6.3-8.2 G/DL A/G 1.41 1.2-2.2 GLOBULIN 3.20 2.4-3.5 BILIRUBIN TOTAL 0.57 0.3-1.2 MG/DL GFR CKD-EPI (2020) ML/ >90.00 0-0 MIN/1 73m LIPID PANEL Reviewed date:02/13/2025 03:09:56 PM Interpretation:Normal Performing Lab: Notes/Report: Col. Ap. Med. P.R. ORDER [id number] PERFORMED AT: Pat. No.: [id number] [facility] [place] [facility]. [facility] Exp: 03/05/2025 [place] [address] Num: [id number] DIRECTOR: LCDA. LO GILMAN LICENSE.: 1449 CLIA: [id number] CHOLESTEROL 162.00 50-200 MG/DL TRIGLYCERIDES 80.00 50-200 MG/DL HDL 81.00 40-60 MG/DL H LDL 65.00 0-130 MG/DL VLDL 16.00 6-30 MG/DL AHDL RISK FACTOR 2.00 4.4-5.5 L TEST PERFORMED BY: LILA BY: [email or web address] XT 3400 URINE WLDNDEYN-HPH-YSES Reviewed date:02/13/2025 03:10:18 PM Interpretation:Normal Performing Lab: Notes/Report: Col. Ap. Med. P.R. ORDER [id number] PERFORMED AT: Pat. No.: [id number] [facility] Paid [facility] C[facility] [place]. [facility] Exp: 03/05/2025 [place] [address] Num: [id number] DIRECTOR: LCDA. LO GILMAN LICENSE.: 1449 CLIA: [id number] COLOR Yellow Yellow APPEARANCE Slightly Cloudy Clear A GLUCOSE Negative Negative BILIRUBIN Negative Negative KETONE Negative Negative SPECIFIC GRAVITY >=1.030 1.001 - 1.030 A BLOOD Trace-intact Negative A PH 5.5 4.5 - 8.0 A PROTEIN Negative Negative UROBILINOGEN 0.2 E.U./dL 0.2 - 1.0 A NITRITE Negative Negative LEUKOCYTES Negative Negative MICROSCOPIC ANALYSIS WBC 0-3 0 - 5 A RBC 2-5 0 - 3 A CASTS None Seen None Seen EPITHELIAL CELLS URINE Moderate Occ-Few A MUCOUS THREADS Moderate None Seen A BACTERIA Moderate Occ - Few A CRYSTALS None Seen None Seen BY CLINITEK STATUS TEST PERFORMED BY: KMBRUCE OTHER: Comment: NHT= NON HEMOLIZED RBC TRACE present in urinalisis sample. TYPE Squamous AMYLASE Reviewed date:02/13/2025 03:10:56 PM Interpretation:Normal Performing Lab: Notes/Report: Col. Ap. Med. P.R. ORDER [id number] PERFORMED AT: Pat. No.: [id number] [facility] Paid 5 Cents [address] Exp: 03/05/2025 [place] [address] Num: [id number] DIRECTOR: [facility]. MONSERRAT CASTAÑEDA LICENSE.: 549 CLIA: [id number] AMYLASE 110.00 30.00-118.00 U/L BY: REMBERTO CLEMENS Sample ID: [id number] Collected: 02/08/2025 7:06AM *Lab Received: 02/08/2025 11:27AM TEST VALIDATED BY: [email or web address] TAVERA 02/08/2025 2:45PM VITAMIN D 25-HYDROXY Reviewed date:02/13/2025 03:10:43 PM Interpretation:Low Performing Lab: Notes/Report: Vitamin D Status Range Col. Ap. Med. P.R. ORDER [id number] PERFORMED AT: Deficiency < 10 Pat. No.: [id number] [facility] Insufficiency 10 - 29 Paid 5 Cents [address]AN RASMUSSEN [address] [place] [address] Sufficiency 30 - 100 Exp: 08/11/2025 Toxicity > 100 Num: [id number] This procedure is certified by the CDC Vitamin D Standardization- DIRECTOR: MALOU. SHAWN SHAH Certification Program (VDSCP) LICENSE.: 774 CLIA: [id number] BY LIAISON XL CHEMILUMINESCENT TEST VALIDATED BY: [email or web address] APONTE 02/09/2025 4:42AM Sample ID: [id number] Collected: 02/08/2025 7:06AM *Lab Received: 02/08/2025 7:57PM 25 OH VITAMIN D TOTAL 25.7 30.0-100.0 ng/mL L TSH Reviewed date:02/13/2025 03:11:04 PM Interpretation:Normal Performing Lab: Notes/Report: Col. Ap. Med. P.R. ORDER [id number] PERFORMED AT: Pat. No.: [id number] [facility] Paid 5 Cents [address] Exp: 03/05/2025 [place] [address] Num: [id number] DIRECTOR: LCDA. MONSERRAT CASTAÑEDA LICENSE.: 549 CLIA: [id number] TSH 1.16 0.55-4.78 uIU/ml BY:REMBERTO IM TEST VALIDATED BY: Jenni:[email or web address]-Angelica DAMIAN 02/08/2025 12:14PM Sample ID: [id number] Collected: 02/08/2025 7:06AM *Lab Received: 02/08/2025 11:27AM CBC + DIFF Reviewed date:02/13/2025 03:09:35 PM Interpretation:Normal Performing Lab: Notes/Report: CBC & DIFF Col. Ap. Med. P.R. ORDER [id number] PERFORMED AT: Pat. No.: [id number] [facility] [place] Paid 5 Cents SULLIVANJami PERALTAEVES, NUM. 18 Exp: 03/05/2025 [place] [address] Num: [id number] DIRECTOR: LCDA. LO GILMAN LICENSE.: 1449 CLIA: [id number] WHITE BLOOD COUNT 8.6 4.8-10.8 X10 RED BLOOD COUNT 4.55 4.2-5.4 X10 HEMOGLOBIN 13.9 12-16 g/dL HEMATOCRIT 42.0 37-47 % MCV 92.2 76-96 fL MCH 30.5 27-32 pg MCHC 33.1 31-35 g/dl RDW 12.9 11-16 % PLATELET COUNT 247 130-400 x10 MPV 8.5 6.1-10 fL AUTOMATIC DIFFERENTIAL NE % 59.6 45-70 % LY % 33.5 20-40 % MO % 5.4 3-10 % EO % 1.2 1-5 % BA % 0.4 0-1 % NE # 5.1 2-7.5 x10 LY # 2.9 1.5-4 x10 MO # 0.5 0.2-0.8 x10 EO # 0.1 0-0.4 x10 BA # 0.0 0-0.1 x10 TEST PERFORMED BY: LILA BY: DX 560 RBC MORPHOLOGY MANUAL DIFFERENTIAL CBC + DIFF Reviewed date:10/10/2024 09:56:40 AM Interpretation:Normal Performing Lab: Notes/Report: Normal HEMATOCRIT 39.9 HEMOGLOBIN 13.2 PLATELET COUNT 323 RED BLOOD COUNT 4.31 WHITE BLOOD COUNT 8.51 PT Reviewed date:10/10/2024 09:54:56 AM Interpretation:Normal Performing Lab: Notes/Report: Normal INTER NORMALIZED RATIO 1.10 PROTHROMBIN TIME 13.3 THERAPEUTIC RATIO 15.0 PTT Reviewed date:10/17/2024 06:15:14 AM Interpretation:Normal Performing Lab: Notes/Report: Normal PARTIAL THROMBOPLASTIN TIME 32.0 HCG QUAL () Reviewed date:10/24/2024 07:59:49 AM Interpretation:Negative Performing Lab: Notes/Report: Negative TEST Negative CHLAMYDIA & GONORRHOEAE Reviewed date:09/12/2024 08:05:41 AM Interpretation:Normal Performing Lab: Notes/Report: Normal CHLAMYDIA NEGATIVE NEISSERIA GONORRHOEAE NEGATIVE HERPES SIMPLE TYPE 2 IGG Reviewed date:09/12/2024 08:05:54 AM Interpretation:Normal Performing Lab: Notes/Report: Normal HERPES 2 SPECIFIC ,IGG NEGATIVE Cervicovaginal , TP Reviewed date:09/12/2024 08:03:43 AM Interpretation:Normal (Bacterial vaginosis) Performing Lab: Notes/Report: Normal (Bacterial vaginosis) cervicovaginal TP SATISFACTORY HPV 16, 18 and Other High Ri sk Types Reviewed date:09/12/2024 08:05:24 AM Interpretation:Abnormal Performing Lab: Notes/Report: Abnormal Trichomonas Vaginalis (TV) Reviewed date:09/12/2024 08:06:23 AM Interpretation:Normal Performing Lab: Notes/Report: Normal HCG QUAL () Reviewed date:11/16/2024 07:56:17 AM Interpretation:Negative Performing Lab: Notes/Report: Negative TEST Negative Reason For Referral Reason SE, Paciente femenin a de 39yo, con abdomen cory, dolor a la palpacion superficial, extrenimiento, rebote positico, movimiento peristalticos disminuidos. paciente refiere 04/20 dolor abdominal Diagnosis 1 Acute abdominal pain (R10.9) Diagnosis 2 Sigmoid diverticulit is (K57.32) Referral Organization [facility] [place] Referring Provider First Name SAURAV Referring Provider Last Name ELIA OGDEN RA Referring Provider Speciality General Pr actice Referred Provider Specialty Emergency Me dicine Clinical Notes DEMETRIUS SIMMONS RN BSN, Lic. [id number], ROBERT 09/06/2024 08:43:18 AM >Se realiza llamada a paciente para veificar estatus, paciente refiere visite violeta de emergencias, tengo wilbert y pancreas inflamado , me dieron medicamentos y me realizaron un ct. La misma llamara luego para coordinar bishop con sy medico primario. Referral Priority Urgent Medications Medication SIG (Take, Route, Frequency, Duration) Notes Start Date End Date Status Vitamin mg Tablet Take 1 Tablet by Oral route 1 time per day for 9 months [place] [id number] 11/24/2012 Not-Taking/ [place] N metroNIDAZOLE 500 MG Tablet 1 tablet Orally Two times a day; Duration: 7 days Not-Taking/ND N Gardasil 9 - Suspension 0.5 Intramuscular 0 month first dose, then at 1 month second dose, then at 6 month third dose Not-Taking/ND N Keflex 500 mg capsule take 1 capsule by Oral route every 12 hours for 7 day [place] [address] 09/19/2015 Not-Taking/ND N metroNIDAZOLE 0.75 % gel use 1 appful by Vaginal route 1 time per day for 5 day(s) [place] [address] 09/19/2015 Not-Taking/ [place] N Ferrous Sulfate 325 mg (65 mg iron) tablet take 1 Tablet by Oral route 1 time per day for 3 months [place] [id number] 10/08/2015 Not-Taking/ [place] N Ultram 50 mg tablet 1 tablet by Oral route every 12 hours [place] [id number] 11/23/2013 Not-Taking/ [place] N Folic Acid 1 mg tablet take 1 tablet by Oral route 1 time per day for 9 months [place] [id number] 04/25/2015 Not-Taking/ ND N Clotrimazole 1 % cream Use 1 appful by Vaginal route 1 time per day for 7 day(s) [place] [id number] 04/25/2015 Not-Taking/ [place] N Duricef 500 mg capsule take 1 capsule by Oral route every 12 hours for 7 day(s) [facility] [place]-[id number] 06/27/2015 Not-Taking/ND N Immunizations Vaccine Route Administration Date Status Comme nts Fluarix Influenza Vaccine 6mo+ ([id number] Formula) IM Intramuscular 12/11/2024 Administered Moderna COVID Vaccine Booster Dose IM Intramuscular 07/11/2021 Administered Moderna COVID-19 Vaccine 1ra Dosis IM Intramuscular 11/05/2020 Administered Moderna COVID-19 Vaccine 2da Dosis IM Intramuscular 12/03/2020 Administered Social History Tobacco Use: Social History Observation Description Date Details (start date - stop date) Never Smoker NA - NA Sex Assigned At : Social History Observation Description Sex Assigned At Female Social History COVID-19 Social Info Question Answer Notes [place] COVID-19 Fecha 05/25/2022 Presenta algun sintoma: [place] Se morin realizado recientement e la prueba rapida o molecular para el COVID 19 No Conoce a alguien que haya sido positivo al COVID -19 No Morin participado de eventos pu blicos, sociales o familiares en los ultimos 14 carrera Yes Cuando Morin viajado fuera de ND o morin estado en contacto con alguien que haya estado fuera de ND en los pasados 14 carrera No Se morin vacunado contra el COVID-19 Refuerzo Moderna SIM History Social Info Question Answer Notes Estado nutricional Siguiente ..Normal SIM Social History Se realiza cernimiento de dolor Yes Paciente expresa tener dolor No Sexual Orientation Don't know Gender Identity Female Drug use No Funtional Status As Follows Se bana sin asistencia Yes Se viste sin asistencia Yes Camina sin asistencia Yes Come sin asistencia Yes Padece de incontinencia No Paciente orientado en Persona, Lugar, Tiempo Se siente audie en mauro se realaciona con las personas a diario No Fecha 01/31/2025 Household As follows Keegan de dependientes 2 Cuantos viven en la casa? 3 ..Ultimo nivel escolar 8 INTERMEDIA ..Vivienda Hijo(a) ..Sospecha de maltrato No ..Viaje reciente fuera de ND <2 meses No Nececidades para comunicacion o acomodo Padece d e problemas de vision Usa espejuelos. Transfusion/inmunisaciones Siguiente ..Transfusiones de rani No ..Reaccion a transfusion No ..Inmunizacion Si ..Inmunizacion Tetano Desconce Paciente o familiar comprend e requeridos e instrucciones de sy doctor? Yes Paciente expresa sue pa ra el cumplimiento de sy tratamiento No Se realizo cernimiento de depresion No Se realiza Audit C Yes Fecha Se realizo cernimiento cance r colorectal No Se requiere resultado de prueba No Se realizo cernimento cancer cervical Yes Fecha Proxima prueba Se requiere resultado de prueba No Se realizo cernimiento cancer de mama No Se requiere resultado de prueba No Se realizo cernimiento de tabaco Yes Fecha Se refiere a consejero de substancias o Psicologo No Sexual History: Social Info Question Answer Notes Details of Sexual History Are you sexually active? Yes Sexual Abuse History: none Sexual History Had sex in the past 12 months (vaginal, oral, or anal)? Yes with Men only Use protection? No Have you ever had a Sexually transmitted disease ? No Drugs/Alcohol: Social Info Question Answer Notes Alcohol Screen (Audit-C) Did you have a drink containing alcohol in the past year? No Points 0 Interpretation Negative Drugs Have you used drugs other than those for medical reasons in the past 12 months? No Caffeine Intake: none Tobacco Use: Social Info Question Answer Notes Tobacco Control (Standard) Tobacco use: Nonsmoker Tobacco use other than smoking: Are you an other tobac co user? No Additional Details Category Social Info Options Details Drugs/Alcohol: Do you smoke marijuana? Ad mits Do you drink alcohol? Socially Section Notes: LEODAN PETERSEN RN, BSN Lic. [id number], DAVID Dominguez 05/14/2021 01:39:16 PM > LEODAN PETERSEN RN, BSN Lic. [id number], DAVID M 05/25/2022 09:48:45 AM > RENATE SIMMONS RN BSN, Lic. [id number], MARCELLE Dominguez 01/08/2022 06:36:57 PM > [place]. [id number], DARINEL 08/31/2024 10:37:31 AM > [place] PUR[place]. [id number], DARINEL 01/16/2025 11:02:00 AM > [place] [id number], DARINEL 10/24/2024 07:52:27 AM > [place] [id number], DARINEL 11/16/2024 08:04:41 AM > LEODAN PETERSEN RN, BSN Lic. 7 [id number], DAVID 05/29/2021 08:18:47 AM > LEODAN PETERSEN RN, BSN Lic. [id number], DAVID 06/17/2021 01:21:19 PM > LEODAN PETERSEN RN, BSN Lic. 7 [id number], DAVID M 06/17/2021 01:21:19 PM > LEODAN PETERSEN RN, BSN Lic. 7 [id number], DAVID M 10/06/2021 09:39:51 AM > Problems Problem Type SNOMED Code ICD Code Onset Dates Problem Status W/U Status Risk Notes Problem Obesity due to excess calories (779921420) Other obesity due to excess calories (E66.09) Active confirmed Problem Chronic pain (75504580) Other chronic pain (G89.29) Active confirmed Problem Slow transit constipation (41830087) Slow transit constipation (K59.01) Active confirmed Problem Pain in pelvis (49167465) Pelvic pain (R10.2) Active confirmed Problem Cervical pain (05880935) Cervical pain (M54.2) Active confirmed Problem Obese class I (568171957976220) BMI 33.0-33.9,adult (Z68.33) Active confirmed Problem BMI 30+ - obesity (536604153) BMI 32.0-32.9,adult (Z68.32) Active confirmed Problem Osteopenia (342428145) Osteopenia of spine (M85.88) Active confirmed Problem Human papillomavirus deoxyribonucleic acid test positive, high risk on vaginal specimen (254880490196650) Vaginal high risk HPV DNA test positive (R87.811) Active confirmed Problem Kidney stone (97656868) Bilateral nephrolithiasis (N20.0) Active confirmed Problem Lumbar spondylosis (632135821) Lumbar spondylosis (M47.816) Active confirmed Problem Diverticulitis of colon (064362739) Sigmoid diverticulitis (K57.32) Active confirmed Problem Obese class II (632665188058430) Body mass index [BMI] 35.0-35.9, adult (Z68.35) Active confirmed Problem Body mass index 30.00 to 34.99 (526413784305896) Body mass index [BMI] 32.0-32.9, adult (Z68.32) Active confirmed Problem Acute left-sided low back pain without sciatica (M54.50) Active confirmed Problem Cervical high risk HPV (human papillomavirus) test positive (599225270) Cervical high risk HPV (human papillomavirus) test positive (R87.810) Active confirmed Vital Signs Heart Rate 91 /min 01/31/2025 Temperature 36.3 C 01/31/2025 Respiratory Rate 19 /min 01/31/2025 Blood pressure diastolic 78 mm Hg 01/31/2025 Oximetry 97 % 01/31/2025 Height-cm 160.02 cm 01/31/2025 Weight-kg 89.81 kg 01/31/2025 Height 63 in 01/31/2025 Blood pressure systolic 110 mm Hg 01/31/2025 Weight 198 lbs 01/31/2025 BMI 35.07 kg/m2 01/31/2025 Procedures Procedure Date Ordered Date Performed Result Body Sit e ENDOCERV CURETTAGE W/SCOPE 11/16/2024 11/17/2024 Negative Findings Encounters Encounter Location Date Provider Diagnosis [place] [id number] 08/31/2024 REINIER SIMMONS Women's annual routine gynecological examination Z01.419 ; High risk human papilloma virus infection B97.7 ; Encounter for Papanicolaou smear of cervix with human papilloma virus (HPV) DNA cotesting Z12.4 ; BMI 35.0-35.9,adult Z68.35 and Need for HPV vaccine Z23 [facility] [place] [facility] [place] [id number] [facility] Encounter to discuss test results Z71.2 ; Cervical high risk HPV (human papillomavirus) test positive R87.810 ; Acute vaginitis N76.0 ; Other specified bacterial agents as the cause of diseases classified elsewhere B96.89 ; Positive screening for depression on 9-item Patient Health Questionnaire (PHQ-9) Z13.31 and BMI 33.0-33.9,adult Z68.[address] [facility] [place] [id number] 09/05/2024 SAURAV RODRIGEZ RODRIGEZ Acute abdominal pain R10.[address] [facility] [facility] [address] [place], [place] [address] [place] [id number] 10/24/2024 [facility] Cervical high risk HPV (human papillomavirus) test positive R87.810 ; Rectal bleeding K62.5 ; Acute midline low back pain without sciatica M54.50 ; Positive screening for depression on 9-item Patient Health Questionnaire (PHQ-9) Z13.31 and BMI 32.0-32.9,adult Z68.[address] [facility] [place] [id number] 10/24/2024 SAURAV RODRIGEZ RODRIGEZ Muscle spasm of back M62.830 ; Other chronic pain G89.29 ; Low back pain, unspecified M54.50 and Screening for metabolic disorder Z13.228 [facility] [place] [id number] 10/24/2024 SAURAV RODRIGEZ RODRIGEZ Muscle spasm of back M62.[address] [facility] [address] [place], [place] [address] [place] [id number] 10/26/2024 SAURAV RODRIGEZ RODRIGEZ Screening for metabolic disorder Z13.[address] [facility] [address] [place] [address], [place] [id number] 09/12/2024 [facility] [place] [facility] [place] [id number] 11/16/2024 [facility] Cervical high risk HPV (human papillomavirus) test positive R87.810 and BMI 32.0-32.9,adult Z68.32 [facility] [place] 18LAURIE R[facility]AN [facility], [place] [id number] 11/01/2024 SAURAV RODRIGEZ RODRIGEZ Osteopenia of spine M85.88 ; Bilateral nephrolithiasis N20.0 ; Lumbar spondylosis M47.816 ; High serum amylase R74.8 and Screening for metabolic disorder Z13.228 [facility] [place] [facility] [place] [id number] 12/14/2024 SAURAV RODRIGEZ RODRIGEZ Bilateral nephrolithiasis N20.0 [facility] [place] [facility] [place] [id number] 01/31/2025 SAURAV RODRIGEZ RODRIGEZ Slow transit constipation K59.01 ; Other chronic pain G89.29 ; Low back pain, unspecified M54.50 ; Body mass index [BMI] 35.0-35.9, adult Z68.35 and Obesity, class 2 E66.812 [facility] [place] [facility] [place] [id number] [facility] Cervical high risk HPV (human papillomavirus) test positive R87.810 and Encounter to discuss test results Z71.2 [facility] [place] [facility] [place] [id number] 12/11/2024 SAMIR ESCUDERO Lumbar pain M54.50 ; Cervical pain M54.2 ; Pain in thoracic spine M54.6 ; Body mass index [BMI] 32.0-32.9, adult Z68.32 and Obesity, class 1 E66.[address] [facility] [place] [id number] 02/08/2025 SAURAV RODRIGEZ RODRIGEZ High serum amylase R74.8 [facility] [address] [place] [id number] 02/08/2025 SAURAV RODRIGEZ Screening for metabolic disorder Z13.228 ; Osteopenia of spine M85.88 and High serum amylase R74.8 [facility] [place] [facility] [address] [id number] 02/12/2025 [facility] [place] Encounter for immunization Z23 Assessments Encounter Date Diagnosis (ICD Code) Assessment Notes Treatment Notes Treatment Clinical Notes Section Notes 10/24/2024 Other chronic pain (ICD-10 - G89.29) 10/24/2024 Muscle spasm of back (ICD-10 - M62.830) 02/08/2025 Screening for metabolic disorder (ICD-10 - Z13.228) 02/08/2025 Osteopenia of spine (ICD-10 - M85.88) 02/12/2025 Encounter for immunization (ICD-10 - Z23) 08/31/2024 Women's annual routine gynecological examination (ICD-10 - Z01.419) Pelvic Exam: Care Instructions material was published, Pap Test: Care Instructions material was published, Learning About Cervical Cancer Screening material was published 08/31/2024 High risk human papilloma virus infection (ICD-10 - B97.7) 02/08/2025 High serum amylase (ICD-10 - R74.8) 10/26/2024 Screening for metabolic disorder (ICD-10 - Z13.228) 01/31/2025 Other chronic pain (ICD-10 - G89.29) RO hypothyroidism 01/31/2025 Slow transit constipation (ICD-10 - K59.01) RO hypothyroidism 12/14/2024 Bilateral nephrolithiasis (ICD-10 - N20.0) 12/11/2024 Cervical pain (ICD-10 - M54.2) 12/11/2024 Lumbar pain (ICD-10 - M54.50) Learning About Low Back Pain material was published, Learning About Low Back Pain material was published 10/24/2024 Rectal bleeding (ICD-10 - K62.5) Rec: Primary physician evaluation. 10/24/2024 Cervical high risk HPV (human papillomavirus) test positive (ICD-10 - R87.810) Rescheduling for colposcopy. 09/19/2024 Cervical high risk HPV (human papillomavirus) test positive (ICD-10 - R87.810) Colposcopy: Before Your Procedure material was published 09/05/2024 Acute abdominal pain (ICD-10 - R10.9) 01/16/2025 Cervical high risk HPV (human papillomavirus) test positive (ICD-10 - R87.810) 01/16/2025 Encounter to discuss test results (ICD-10 - Z71.2) 11/01/2024 Osteopenia of spine (ICD-10 - M85.88) 11/01/2024 Bilateral nephrolithiasis (ICD-10 - N20.0) 09/19/2024 Encounter to discuss test results (ICD-10 - Z71.2) 11/16/2024 Cervical high risk HPV (human papillomavirus) test positive (ICD-10 - R87.810) 10/24/2024 Muscle spasm of back (ICD-10 - M62.830) 11/16/2024 BMI 32.0-32.9,adult (ICD-10 - Z68.32) 11/01/2024 Lumbar spondylosis (ICD-10 - M47.816) 10/24/2024 Low back pain, unspecified (ICD-10 - M54.50) 09/19/2024 Acute vaginitis (ICD-10 - N76.0) Bacterial Vaginosis: Care Instructions material was published, Bacterial Vaginosis: Care Instructions material was published 10/24/2024 Acute midline low back pain without sciatica (ICD-10 - M54.50) 12/11/2024 Pain in thoracic spine (ICD-10 - M54.6) 01/31/2025 Low back pain, unspecified (ICD-10 - M54.50) RO hypothyroidism 08/31/2024 Encounter for Papanicolaou smear of cervix with human papilloma virus (HPV) DNA cotesting (ICD-10 - Z12.4) 02/08/2025 High serum amylase (ICD-10 - R74.8) 08/31/2024 BMI 35.0-35.9,adult (ICD-10 - Z68.35) 01/31/2025 Body mass index [BMI] 35.0-35.9, adult (ICD-10 - Z68.35) RO hypothyroidism 12/11/2024 Body mass index [BMI] 32.0-32.9, adult (ICD-10 - Z68.32) 10/24/2024 Positive screening for depression on 9-item Patient Health Questionnaire (PHQ-9) (ICD-10 - Z13.31) 09/19/2024 Other specified bacterial agents as the cause of diseases classified elsewhere (ICD-10 - B96.89) 10/24/2024 BMI 32.0-32.9,adult (ICD-10 - Z68.32) 12/11/2024 Obesity, class 1 (ICD-10 - E66.811) 01/31/2025 Obesity, class 2 (ICD-10 - E66.812) RO hypothyroidism 11/01/2024 High serum amylase (ICD-10 - R74.8) 09/19/2024 Positive screening for depression on 9-item Patient Health Questionnaire (PHQ-9) (ICD-10 - Z13.31) Patient was oriented about Psychology service but patient don't wants evaluation spite orientation 08/31/2024 Need for HPV vaccine (ICD-10 - Z23) 10/24/2024 Screening for metabolic disorder (ICD-10 - Z13.228) 11/01/2024 Screening for metabolic disorder (ICD-10 - Z13.228) 09/19/2024 BMI 33.0-33.9,adult (ICD-10 - Z68.33) 08/31/2024 Other Learning About Control material was published, 10 Things to Do When You Have COVID-19 material was published, 9 Things To Do If You've Been Exposed to COVID-19 material was published, Coronavirus (COVID-19): Care Instructions material was published, Breast Self-Exam: Care Instructions material was published, ?cido f?[place] material was published, Exposure to Sexually Transmitted Infections: Care Instructions material was published, HPV Vaccine: Care Instructions material was published, Human Papillomavirus (HPV): Care Instructions material was published, Influenza (Flu) Vaccine: Care Instructions material was published, Influenza (Flu) Vaccine: Care Instructions material was published Plan Of Treatment Pending Test Test Name Order Date URINE [id number] 06/16/2021 TSH 06/16/2021 HEPATITIS C AB 06/16/2021 HIV-1/HIV-2 AB SCREEN 06/16/2021 Future Test Test Name Order Date CERVICAL SPINE-AP AND LAT 12/11/2024 THORACIC SPINE-AP & LAT 12/11/2024 Insurance Providers Payer Name Payer Address Payer Phone Subscriber Number Group Number Insured Name Patient Relationship to Insured Coverage Start Date Coverage End Date [employer] [address] [place], [place] [address] [id number] Sandi Patterson Self - patient is the insured 5 Medications Administered Medication Instructions Date of Administration Dosage Notes Ketorolac 10/24/2024 2 mL Ketorolac 12/11/2024 2 mL Paciente no pr esenta reaccion adversa o alergia al momento de la administracion del mismo orphenadrine 12/11/2024 2 mL Paciente no presenta reaccion adversa o alergia al momento de administracion Medical (General) History Surgical History Surgery Date(Month/Year) section
== END 2025-05-15 15:23 | disposition home or self-care (01) ==
LOC: HO.HMCH 14:14
DX: K58.9 Irritable bowel syndrome, unspecified (principal); F32.A Depression, unspecified; E66.9 Obesity, unspecified; Z68.33 Body mass index [BMI] 33.0-33.9, adult; M54.50 Low back pain, unspecified; K62.5 Hemorrhage of anus and rectum; R10.20 Pelvic and perineal pain unspecified side

== ENCOUNTER → 2025-05-15 14:13 | Outpatient (BNVA) | payer OTHER, SELFPAY | DX: F41.8 Other specified anxiety disorders (principal); M54.50 Low back pain, unspecified; K58.9 Irritable bowel syndrome, unspecified; K62.5 Hemorrhage of anus and rectum; R10.20 Pelvic and perineal pain unspecified side; E66.9 Obesity, unspecified; Z68.33 Body mass index [BMI] 33.0-33.9, adult | CPT/HCPCS: 96127; 99212 ==

== ENCOUNTER 2025-05-25 10:35 | Outpatient (REF) | payer OTHER, SELFPAY ==
[2025-05-25 10:52] LABS: MANUAL DIFF FLAG NO
[2025-05-25 11:16] LABS: Hematocrit 39.4 % (37.0-47.0); Hemoglobin 13.0 g/dl (12.0-16.0); Imm Gran Abs Auto 0.02 X10*3/uL (0.00-0.03); Imm Gran Pct Auto 0.2 % (0.0-0.4); Lymphocytes Absolute Auto 2.2 X10*3/uL (1.2-4.9); Mean Corpuscular HGB Conc 33.0 g/dl (31.0-35.0); Mean Corpuscular Hemoglobin 29.7 pg (27.0-33.0); Mean Corpuscular Volume 90.0 fL (80.0-98.0); NRBC Abs Auto 0.000 X10*3/uL (0.0-0.012); NRBC Pct Auto 0.0 /100WBC (0.0-0.2); Platelet Count 268 X10*3/uL (160-400); Red Blood Count 4.38 X10*6/uL (4.20-5.50); White Blood Count 10.2 X10*3/uL (4.8-10.8)
[2025-05-25 12:36] LABS: Alanine Aminotransferase 19 U/L (0-31); Albumin Level 4.4 g/dL (3.5-5.0); Alkaline Phosphatase 69 U/L (39-117); Anion Gap 11 (12-20); Aspartate Amino Transferase 22 U/L (5-31); Blood Urea Nitrogen 7 mg/dL (9-16); Calcium 9.3 mg/dL (8.4-10.2); Carbon Dioxide 27 mmol/L (22-29); Chloride 107 mmol/L (96-108); Cholesterol 111 mg/dL (<200); Estimated Glomerular Filt Rate > 60; HDL Cholesterol 46 mg/dL (>40); Potassium 3.8 mmol/L (3.3-5.1); Sodium 141 mmol/L (135-145); Total Protein 7.6 g/dL (6.5-8.0); Triglycerides 49 mg/dL (<150)
[2025-05-25 13:02] LABS: Folate 8.9 ng/mL (> or = 4.0); Vitamin B12 1480 pg/mL (200-900)
== END 2025-05-25 10:36 | disposition home or self-care (01) ==
LOC: HO.LAB 10:35
DX: Z00.00 Encounter for general adult medical examination without abnormal findings (principal); Z13.220 Encounter for screening for lipoid disorders; Z13.29 Encounter for screening for other suspected endocrine disorder; Z13.21 Encounter for screening for nutritional disorder; Z13.0 Encounter for screening for diseases of the blood and blood-forming organs and certain disorders involving the immune mechanism
CPT/HCPCS: 36415; 80053; 80061; 82306; 82607; 82746; 84443; 85025